=== PATIENT | female | born 1995 | race Caucasian/White ===

== ENCOUNTER 2017-03-30 09:01 | Emergency (ER) | payer OTHER ==
[~2017-03-30] VITALS: Ht 167.6 cm; Wt 68.0 kg
[~2017-03-30 09:01] MED LIST: MUPI15CR TP; SULF1TAB24 PO
--- NOTE | 2017-03-30 10:30 | RAD ---
CT HEAD AND CERVICAL SPINE WITHOUT CONTRAST History: was raising up and struck back of head, 03/28, cont pain, nausea Comparison: None. Procedure: Axial images are obtained of the head from the skull base through the vertex without IV contrast. Noncontrast helical CT of the cervical spine was performed. Axial, sagittal, and coronal reconstructions were obtained. Head Findings: Andujar-white matter differentiation is preserved. The ventricles and sulci are normal for the patient's age.. No mass-effect, midline shift, hemorrhage or obvious acute infarction is identified. Basilar cisterns are patent. Bone windows demonstrate no significant calvarial abnormality.The visualized paranasal sinuses appear clear. Mastoid air cells are well aerated. Cervical Spine Findings: The vertebral body height and alignment are maintained. There is no evidence of acute fracture or acute malalignment. No prevertebral soft tissue swelling is identified. Visualized soft tissues of the neck demonstrate no significant abnormalities. The visualized lung apices are clear. IMPRESSION: 1. No acute intracranial abnormality. 2. No acute fracture of the cervical spine. PQRS Compliance Statement: One or more of the following individualized dose reduction techniques were utilized for this examination: 1. Automated exposure control 2. Adjustment of the mA and/or kV according to patient size 3. Use of iterative reconstruction technique
[2017-03-30] MEDS ORDERED: IBUP800T19 PO (10:37)
--- NOTE | 2017-03-30 10:38 | PHYS DOC ---
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 Patient states that 2 days ago she had been down to get something out of a low drawer of the refrigerator. She raised up she struck the back of her head on the top of the refrigerator compartment. She hit it really hard and she immediately fell. Her head was hurting immediately. She has been dizzy ever since. She vomited once yesterday morning. She didn't feel well yesterday. 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 Today she got up and still has a headache, still feels dizzy and nauseated. She was told to come in to be seen. Her last dose of ibuprofen was at 5 AM, 800 mg. She didn't sleep very well last night because her head was hurting. Pt has no chronic medical problems. 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 Review of Systems Review of Systems Constitutional: Denies fever or chills [] Eyes: Denies change in visual acuity GI: Nausea, no vomiting : Denies Musculoskeletal: Some has neck pain Integument: Denies laceration or bleeding Neurologic: As in history of present illness Allergies Allergies Allergies Coded Allergies Type Severity Reaction Last Updated Verified No Known Drug Allergies 12/15/14 No Physical Exam Physical Exam Constitutional: Well developed, well nourished, no acute distress, non-toxic appearance. Ambulatory, alert, mentating normally. HENT: Normocephalic, atraumatic, bilateral external ears normal, nose normal. Mild tenderness to palpation of the occipital area without swelling, hematoma, or other abnormality noted. Eyes: PERRLA, EOMI, conjunctiva normal, no discharge. [] Neck: Normal range of motion, mild generalized tenderness to palpation without bony point tenderness, without deformity. Supple, no stridor. [] Skin: Warm, dry, no erythema, no rash. [] Extremities: No tenderness, no cyanosis, no clubbing, ROM intact, no edema. [] Neurologic: Alert and oriented X 3, normal motor function, no focal deficits noted. [] Current Patient Data Vital Signs Vital Signs Date Time Temp Pulse Resp B/P (MAP) Pulse Ox O2 Delivery O2 Flow Rate FiO2 03/30/17 09:27 97.9 65 22 97 Room Air EKG EKG [] Radiology/Procedures Radiology/Procedures CT scan of the head and cervical spine read by the radiologist. No acute findings.[] Course & Med Decision Making Course & Med Decision Making Pertinent Labs and Imaging studies reviewed. (See chart for details) 21-year-old female struck the back of her head hard as she was raising up from bending over, 2 days ago. She still has headache, nausea, neck pain, doesn't feel well. She has taken ibuprofen. CT scan unremarkable. We will have her rest for a day or 2, likely has a concussion. See instructions for plan. [] Dragon Disclaimer Dragon Disclaimer This electronic medical record was generated, in whole or in part, using a voice recognition dictation system. Departure Departure: Impression: Primary Impression: Closed head injury with concussion Disposition: HOME, SELF-CARE Condition: STABLE Referrals: POONAM WILBURN MD (PCP) Patient Instructions: Concussion and Brain Injury, [id number] Additional Instructions: CT scan was normal today. Because of your symptoms, you do appear to have a concussion. For concussion, you need to rest in a dark quiet room, drink plenty of liquids, until better. Take ibuprofen 800 mg every 6-8 hours as needed for headache. You may use ice 15-20 minutes out of every 1-2 hours on the back of your head and neck. If not improving in 2-3 days, see your primary care doctor for recheck. Scripts Ibuprofen (IBUPROFEN) 800 Mg Tablet 1 TAB PO TID, #30 TAB Prov: NICHOLAS LUCAS MD 03/30/17 NICHOLAS LUCAS MD Mar 30, 2017 10:38
[2017-03-30 10:58] VITALS: BP 126/62
== END 2017-03-30 10:53 | disposition home or self-care (01) ==
LOC: ER 09:01
DX: S06.0X0A Concussion without loss of consciousness, initial encounter (principal); W18.09XA Striking against other object with subsequent fall, initial encounter; Y93.89 Activity, other specified; Y99.8 Other external cause status; Y92.89 Other specified places as the place of occurrence of the external cause
CPT/HCPCS: 70450; 72125; 99284-25

== ENCOUNTER 2017-04-06 10:48 | Emergency (ER) | payer OTHER ==
[~2017-04-06] VITALS: Ht 167.6 cm; Wt 67.1 kg
[~2017-04-06 10:48] MED LIST changes: +IBUP800T19 PO
[2017-04-06] MEDS ORDERED: ONDANSETRON ODT 4 MG TAB.RAPDIS PO ONE (11:30)
[2017-04-06 12:03] VITALS: BP 128/72
--- NOTE | 2017-04-06 12:04 | RAD ---
CT of the head without contrast, 04/06/2017: History: Fall, head injury Comparison is made to a study from 03/30/2017. The ventricles are within normal limits in size. There is no shift of the midline structures. There is no evidence of acute intracranial hemorrhage or mass effect. IMPRESSION: No acute intracranial abnormality is detected. PQRS Compliance Statement: One or more of the following individualized dose reduction techniques were utilized for this examination: 1. Automated exposure control 2. Adjustment of the mA and/or kV according to patient size 3. Use of iterative reconstruction technique
--- NOTE | 2017-04-06 12:18 | PHYS DOC ---
Past History Past Medical History: Other Past Surgical History: Tonsillectomy, Other Alcohol Use: None Drug Use: None Adult General Chief Complaint Chief Complaint: HEAD INJURY/TRAUMA HPI HPI Patient is a 19 year old F who presents with a head injury sustained yesterday afternoon. She states that her symptoms have been mildly the progressively worsening since her injury. Her symptoms include generalized headache which is worse in the back of her head where she hit her head. She also has associated nausea with one episode of vomiting, dizziness, poor balance, poor memory over the past week in particular just prior to hitting her head. She states that light worsens her symptoms as well as concentration and activity. Rest and avoidance of light and loud noises improve her symptoms. Her history was compensated by a recent head injury approximately one week ago. At that time she was diagnosed concussion. She has 1 other concussion in her history. Review of Systems Review of Systems Constitutional: Denies fever or chills [] Eyes: Denies change in visual acuity, redness, or eye pain [] HENT: Denies nasal congestion or sore throat [] Respiratory: Denies cough or shortness of breath [] Cardiovascular: No additional information not addressed in HPI [] GI: Denies abdominal pain, nausea, vomiting, bloody stools or diarrhea [] : Denies dysuria or hematuria [] Musculoskeletal: Denies back pain or joint pain [] Integument: Denies rash or skin lesions [] Neurologic: Negative except history of present illness Endocrine: Denies polyuria or polydipsia [] All other systems were reviewed and found to be within normal limits, except as documented in this note. Family History Family History Noncontributory Current Medications Current Medications Current Medications Medications (Trade) Dose Ordered Sig/Valentine Start Time Stop Time Status Last Admin Dose Admin Acetaminophen (Tylenol) 1,000 mg 1X ONCE 04/06/17 12:20 04/06/17 12:21 04/06/17 12:00 1,000 MG Diazepam (Valium) 2 mg 1X ONCE 04/06/17 12:20 04/06/17 12:21 04/06/17 12:01 2 MG Ondansetron HCl (Zofran Odt) 4 mg 1X ONCE 04/06/17 11:30 04/06/17 11:31 DC 04/06/17 11:22 4 MG Allergies Allergies Allergies Coded Allergies Type Severity Reaction Last Updated Verified No Known Drug Allergies 12/15/14 No Physical Exam Physical Exam Constitutional: Well developed, well nourished, mild distress, non-toxic appearance. [] HENT: atraumatic, bilateral external ears normal, oropharynx moist, no oral exudates, nose normal. Moderate generalized tenderness of the scalp without obvious bruising, lacerations or abrasions. Eyes: PERRLA, EOMI, conjunctiva normal, no discharge. [] Neck: Normal range of motion, supple, no stridor. [] Generalized tenderness posteriorly Cardiovascular:Heart rate regular rhythm, no murmur [] Lungs & Thorax: Bilateral breath sounds clear to auscultation [] Abdomen: Bowel sounds normal, soft, no tenderness, no masses, no pulsatile masses. [] Skin: Warm, dry, no erythema, no rash. [] Back: No tenderness, no CVA tenderness. [] Extremities: No tenderness, no cyanosis, no clubbing, ROM intact, no edema. [] Neurologic: Alert and oriented X 3, normal motor function, normal sensory function, no focal deficits noted. [] Mild slow cognition Psychologic: Affect normal, judgement normal, mood normal. [] Current Patient Data Vital Signs Vital Signs Date Time Temp Pulse Resp B/P (MAP) Pulse Ox O2 Delivery O2 Flow Rate FiO2 04/06/17 12:03 67 12 128/72 (90) 99 Room Air 04/06/17 10:55 98.1 EKG EKG [] Radiology/Procedures Radiology/Procedures CT head - radiology report was reviewed with no acute disease noted. Her scan today was compared with her previous scan and no interval changes were noted Course & Med Decision Making Course & Med Decision Making Pertinent Labs and Imaging studies reviewed. (See chart for details) [] Dragon Disclaimer Dragon Disclaimer This electronic medical record was generated, in whole or in part, using a voice recognition dictation system. Departure Departure: Impression: Primary Impression: Closed head injury with concussion Disposition: 01 HOME, SELF-CARE Condition: STABLE Referrals: POONAM WILBURN MD (PCP) Patient Instructions: Concussion and Brain Injury, Concussion-SportsMed Additional Instructions: Bing was seen in the ED for a head injury. No emergency medical condition was found on history and physical exam. She did have normal imaging of her head with a CT scan. Her symptoms were most consistent with a Moderate Concussion, which is her 3rd lifetime head injury. She was strongly advised to avoid physical activity until she is symptom free without medication. She was also counselled on the prison effects of multiple head injuries and advised to seek further counselling from her primary care physician prior to returning to activity. She was advised to follow up with her primary care doctor in the next 3-5days to develop a return to activity plan. Scripts Ondansetron (ZOFRAN ODT) 4 Mg Tab.rapdis 15 TAB SL Q8HRS, #15 TAB Prov: MARBIN MARIN MD 04/06/17 Problem Qualifiers Primary Impression: Closed head injury with concussion Encounter type: initial encounter Loss of consciousness presence/duration: without LOC Qualified Codes: S06.0X0A - Concussion without loss of consciousness, initial encounter MARBIN MARIN MD Apr 06, 2017 12:18
[2017-04-06] MEDS ORDERED: ACETAMINOPHEN 500 MG TABLET PO ONE (12:20)
[2017-04-06] MEDS ORDERED: diazePAM 2 MG TABLET PO ONE (12:20)
[2017-04-06] MEDS ORDERED: ONDA4TAB10 SL (12:34)
== END 2017-04-06 12:37 | disposition home or self-care (01) ==
LOC: ER 10:48
DX: S06.0X0A Concussion without loss of consciousness, initial encounter (principal); W22.8XXA Striking against or struck by other objects, initial encounter; Y93.89 Activity, other specified; Y99.8 Other external cause status; Y92.89 Other specified places as the place of occurrence of the external cause
CPT/HCPCS: 70450; 99284; Q0162